=== PATIENT | female | born 1995 | race Caucasian/White ===

== ENCOUNTER 2018-04-28 03:50 | Emergency (ER) | payer OTHER ==
[2018-04-28] MEDS ORDERED: KETOROLAC TROMETHAMINE 30 MG/1 ML VIAL IM ONE (04:36)
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
[2018-04-28] MEDS ORDERED: KETOROLAC TROMETHAMINE 30 MG/1 ML VIAL ONE ×2 (04:39→04:56)
[2018-04-28 04:53] VITALS: BP 121/71; PULSE 79; TEMP 97.1; BMI 21.7
--- NOTE | 2018-04-28 04:54 | PDOC ---
*Physical Exam - Vital Signs Last Vital Signs Temp Pulse Resp BP Pulse Ox 97.1 F L 79 19 121/71 97 04/28/18 03:50 04/28/18 03:50 04/28/18 03:50 04/28/18 03:50 04/28/18 03:50 Medical Decision Making - Medical Decision Making 04/28/18 04:53 Pt seen by Midlevel Provider under my direct supervision Pt interviewed and examined Ancillary studies reviewed I agree with plan as outlined by Midlevel Provider *DC/Admit/Observation/Transfer - Discharge Dispostion Condition at time of disposition: Fair - Referrals - Patient Instructions - Post Discharge Activity
== END 2018-04-28 06:12 | disposition home or self-care (01) ==
LOC: JER 03:50
PROC: 3E0233Z Introduction of Anti-inflammatory into Muscle, Percutaneous Approach (ICD-10-PCS; principal; 2018-04-28)
DX: M54.5 Low back pain (principal); V47.6XXA Car passenger injured in collision with fixed or stationary object in traffic accident, initial encounter; Y92.488 Other paved roadways as the place of occurrence of the external cause; Y93.89 Activity, other specified; Y99.8 Other external cause status
CPT/HCPCS: 99281-25

== ENCOUNTER 2019-09-29 17:39 | Emergency (ER) | payer OTHER ==
--- NOTE | 2019-09-29 17:45 | PDOC ---
Rapid Medical Evaluation Time Seen by Provider: 09/29/19 17:41 Medical Evaluation: Allergies Allergy/AdvReac Type Severity Reaction Status Date / Time No Known Allergies Allergy Verified 04/28/18 04:36 09/29/19 17:41 I have performed a brief in-person evaluation of this patient. CC: sent by for ?felon of right index finger PE: cuticle erythema and swelling present to right index finger. No tenderness to pad of right index finger. Cap refill<2 seconds. Orders: nothing Patient will proceed to ED for further evaluation. Discharge Disposition - Diagnosis Finger pain, right - Referrals - Patient Instructions - Post Discharge Activity
[2019-09-29 17:46] VITALS: BP 119/74; PULSE 95; TEMP 98; BMI 23.6
[2019-09-29] MEDS ORDERED: IBUPROFEN 600 MG TABLET (FP) PO ONE ×2 (18:12→18:17)
--- NOTE | 2019-09-29 18:15 | PDOC ---
History of Present Illness - General Chief Complaint: Redness To Affected Area Stated Complaint: FELBEATRIZ OF FINGER Time Seen by Provider: 09/29/19 17:41 History Source: Patient Exam Limitations: No Limitations - History of Present Illness Initial Comments: 09/29/19 18:16 24-year-old denies past medical history [id number] presents complaining of pain to right index finger since this morning. On occasion patient admits to nail and cuticle biting. Denies direct trauma, fever, chills, nausea, vomiting, or any other concerning symptom. ROS: as above PE: GENERAL: well-appearing, NAD HEAD: NCAT EYES: Pupils equal, round and reactive to light, sclera anicteric, conjunctiva clear ENT: pharynx: no erythema, no exudate, uvula midline NECK: supple CHEST: nontender RESP: clear, no w/r/r CARDIO: rrr, no m/g/r ABD: +BS, soft, nontender, non distended BACK: no midline spinal ttp, no CVAT EXTREMITIES: Erythema and warmth to dorsal aspect of right index finger, no streaking noted, no swelling, no tenderness to palpation, no pus pocket noted, normal range of motion, no edema NEUROLOGICAL: Normal speech, normal gait SKIN: Warm, Dry Is this a multiple visit Asthma Patient?: No Past History - Medical History Allergies/Adverse Reactions: Allergies Allergy/AdvReac Type Severity Reaction Status Date / Time No Known Allergies Allergy Verified 09/29/19 17:46 Home Medications: Ambulatory Orders Cephalexin [Keflex] 500 mg PO TID #21 capsule 09/29/19 COPD: No - Psycho-Social/Smoking History Smoking History: Never smoked Have you smoked in the past 12 months: No - Substance Abuse Hx (Audit-C & DAST Scrn) How often the patient has a drink containing alcohol: Never Score: In Men: 4 or > Positive; In Women: 3 or > Positive: 0 Screen Result (Pos requires Nsg. Audit-10AR): Negative *Physical Exam - Vital Signs Last Vital Signs Temp Pulse Resp BP Pulse Ox 98 F 95 H 18 119/74 99 09/29/19 17:43 09/29/19 17:43 09/29/19 17:43 09/29/19 17:43 09/29/19 17:43 Medical Decision Making - Medical Decision Making 09/29/19 18:18 24-year-old denies past medical history [id number] presents complaining of pain to right index finger since this morning. On occasion patient admits to nail and cuticle biting. Denies direct trauma, fever, chills, nausea, vomiting, or any other concerning symptom. Prescription for cephalexin P.o. ibuprofen 600mg Strict return precautions Discharge - Discharge Information Problems reviewed: Yes Clinical Impression/Diagnosis: Finger pain, right Condition: Stable Disposition: HOME - Admission No - Additional Discharge Information Prescriptions: Cephalexin [Keflex] 500 mg PO TID #21 capsule - Follow up/Referral Referrals: Zeeshan Bartholomew MD [Primary Care Provider] - - Patient Discharge Instructions Additional Instructions: Take cephalexin 500 mg 1 tablet every 8 hours for 7 days Soak your finger in warm water several times a day Take ibuprofen 600 mg every 6 hours as needed for pain Return to ED if you get increasing pain, streaking, redness, fever, chills or any concerning symptoms - Post Discharge Activity
== END 2019-09-29 18:23 | disposition home or self-care (01) ==
LOC: JERFT 17:39
DX: M79.644 Pain in right finger(s) (principal)
CPT/HCPCS: 99283-25